=== PATIENT | female | born 2000 | race Caucasian/White ===

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

== ENCOUNTER → 2019-12-08 | Outpatient (CLI) | payer OTHER ==
[~2019-12-08] MED LIST changes: +IBUP-1114 PO; +MAPA500T2 PO
[2019-12-08 12:54] LABS: APPEARANCE, URINE HAZY (CLEAR); BACTERIA, URINE AUTO 2+ (NEGATIVE); BILIRUBIN, URINE AUTO NEGATIVE (NEGATIVE); BLOOD, URINE BLOOD NEGATIVE (NEGATIVE); COLOR, URINE YELLOW (YELLOW); GLUCOSE, URINE (UA) AUTO NEGATIVE (NEGATIVE); KETONE, URINE AUTO NEGATIVE (NEGATIVE); LEUKOCYTE ESTERASE, URINE AUTO 3+ (NEGATIVE); NITRITE, URINE AUTO NEGATIVE (NEGATIVE); PROTEIN, URINE AUTO NEGATIVE (NEGATIVE); RBC, URINE AUTO 1 /HPF (0-3); SPECIFIC GRAVITY URINE AUTO 1.003 (1.002-1.035); SQUAMOUS EPITHELIAL CELL UR AU 11 /HPF (0-6); UROBILINOGEN, URINE AUTO 0.2 mg/dL (0.0-2.0); WBC, URINE AUTO 5 /HPF (0-3)
[2019-12-08 13:10] LABS: BASO % 0.2 % (0.0-1.0); EOS # 0.1 10^3/uL (0.0-0.5); EOS % 0.6 % (0.0-3.0); HEMATOCRIT 39.1 % (36.0-47.0); LYMPH # 1.2 10^3/uL (1.5-5.0); LYMPH % 13.7 % (24.0-44.0); MEAN CORPUSCULAR HEMOGLOBIN 29.6 pg (27.0-33.0); MEAN CORPUSCULAR HGB CONC 33.2 g/dl (32.0-36.5); MEAN CORPUSCULAR VOLUME 89.1 fl (80.0-96.0); MONO # 0.3 10^3/uL (0.0-0.8); MONO % 2.8 % (0.0-5.0); NEUTROPHILS # 7.5 10^3/uL (1.5-8.5); NEUTROPHILS % 82.3 % (36.0-66.0); PLATELET COUNT, AUTOMATED 314 10^3/uL (150-450); RED BLOOD COUNT 4.39 10^6/uL (4.00-5.40); WHITE BLOOD COUNT 9.1 10^3/uL (4.0-10.0)
[2019-12-08 14:18] LABS: HIV 1&2 SCREEN CENTAUR NEGATIVE (NEGATIVE)
== END ==
LOC: M LAB 12:03
PROVIDERS: ATTEND Advanced Practice Midwife
DX: Z34.81 Encounter for supervision of other normal pregnancy, first trimester (principal); Z3A.00 Weeks of gestation of pregnancy not specified

== ENCOUNTER → 2019-12-11 | Outpatient (CLI) | payer OTHER ==
--- NOTE | 2019-12-12 08:06 | REP ---
INDICATION: PREG, DATING. Supervision of . COMPARISON: None. TECHNIQUE: Transabdominal obstetric sonography: FINDINGS: Scanning through the gravid uterus demonstrates a viable single intrauterine gestation in breech lie. motion is observed and heart rate is recorded at 150 beats per minute. A left lateral placenta is seen, grade 0, without evidence of placenta previa. Amniotic fluid is subjectively normal. Closed cervical length is measured at 4.2 cm transabdominally. No extrauterine abnormality is observed. No abnormality is observed. nose and lips and facial profile less than optimally seen due to position. Right ventricular cardiac outflow tract view is also less than optimally seen. The following additional anatomic structures are identified felt to be unremarkable: cranium, intracranial anatomy, four-chamber heart with left ventricular outflow tract view, diaphragm, left-sided stomach, abdominal wall cord insertion, right and left kidney, urinary bladder, spine, upper and lower extremities. Biometry chart: BPD 4.8 cm 20 weeks 4 days Head circumference 17.1 cm 19 weeks 5 days Abdominal circumference 14.9 cm 20 weeks 1 day Femur length 3.0 cm 19 weeks 2 days Humeral length 2.8 cm 18 weeks 6 days HC/AC ratio normal 1.15 Cephalic index normal 0.80 Estimated weight 312 grams, 0 lb 11 oz IMPRESSION: Viable single intrauterine gestation at 19 weeks 5 days by today's composite sonographic criteria. FRAN by today's sonography May 01, 2020. No complication identified. anatomic survey less than complete regarding visualization of face and profile and right ventricular cardiac outflow tract view. <Electronically signed by Missael Blount > 12/12/19 0831
== END ==
LOC: M RAD 13:53
PROVIDERS: ATTEND Advanced Practice Midwife
DX: Z36.87 Encounter for antenatal screening for uncertain dates (principal); O09.292 Supervision of pregnancy with other poor reproductive or obstetric history, second trimester; Z3A.19 19 weeks gestation of pregnancy

== ENCOUNTER → 2020-01-09 | Outpatient (CLI) | payer OTHER ==
--- NOTE | 2020-01-09 16:42 | REP ---
INDICATION: F/U ANATOMY - NOSE,LIPS,PROFILE,RVOT COMPARISON: 12/11/2019 TECHNIQUE: Transabdominal obstetrical ultrasound with color Doppler evaluation. FINDINGS: Examination demonstrates a single live intrauterine in breech presentation. motion is identified by technologist. Placenta is noted posterior fundal and grade 2 without evidence for placenta previa or abruption. Multiple venous lakes are suggested within the placenta. The cord appears to insert on the superior 3rd of the placenta. Amniotic fluid volume is normal. Cervix measures 3.3 cm in length and appears closed.. Gestational age by LMP 24 weeks 2 days with FRAN 04/28/2020. Gestational age by current measurements 22 weeks 5 days with FRAN 05/09/2020. FHR equals 160 beats per minute. Estimated weight 537 grams (less than 3rd percentile based on age by FRAN at 23 weeks 6 days; 49th percentile based on age by current measurements). Anatomical assessment demonstrates normal structures including choroid plexus, cavum, cerebellum/posterior fossa, facial features, right cardiac ventricular outflow tract, lungs, diaphragm, stomach, cord insertion/three-vessel cord, kidneys/bladder, spine, and extremities. IMPRESSION: 1. In conjunction with prior examination anatomical assessment is essentially normal. There is mild subjective prominence to the gallbladder of uncertain significance which may warrant follow-up. 2. Placenta demonstrates findings as described above including presumed venous lakes. 3. weight as described above may be below suspected normal range and may warrant follow-up. <Electronically signed by Jeanmarie Parks > 01/09/20 1721
== END ==
LOC: M WHC 11:00
PROVIDERS: ATTEND Advanced Practice Midwife
DX: O09.292 Supervision of pregnancy with other poor reproductive or obstetric history, second trimester (principal)

== ENCOUNTER → 2020-02-01 | Outpatient (CLI) | payer OTHER ==
--- NOTE | 2020-02-01 13:46 | REP ---
INDICATION: SUSPECTED POOR GROWTH,F/U GALLBLADDER AND GROWTH. COMPARISON: Comparison study January 09, 2020.. TECHNIQUE: Transabdominal obstetric sonography. FINDINGS: Scanning through the gravid uterus demonstrates a viable single intrauterine gestation in cephalic lie. motion is observed and heart rate is recorded at 134 beats per minute. A posterior fundal placenta is seen, grade 2, without evidence of placenta previa. Amniotic fluid is subjectively normal. Closed cervical length is measured at 3.2 cm transabdominally. No extrauterine abnormality is observed. Amniotic fluid is subjectively normal. A marginal placental cord insertion is seen. Four-chamber heart and left ventricular outflow tract views were visualized today and appear normal. There is mild renal pyelitis Marina desist, right greater than left. The AP dimension of the right renal pelvis is 5 mm. Consider urinary tract sonography. Biometry chart: BPD 6.7 cm, 26 weeks 6 days Head circumference 24.9 cm, 27 weeks 0 days Abdominal circumference 22.3 cm, 26 weeks 5 days Femur length 4.6 cm, 25 weeks 2 days Humeral length 4.0 cm, 24 weeks 3 days HC AC ratio normal 1.12 Cephalic index normal 0.74 Estimated weight 913 g, 2 lb 0 oz, 12th percentile for 27 weeks 1 day SD ratio in the umbilical cord artery by Doppler normal 2.36 IMPRESSION: Viable single intrauterine gestation at 26 weeks 0 days by today's composite sonographic criteria. FRAN by today's sonography May 09, 2020. No complication identified. Expected gestational age estimate based on prior sonography is 27 weeks 4 days. FRAN by prior sonography April 28, 2020. Estimated weight in the 12th percentile for 27 weeks 1 day. Mild renal pyelectasis. <Electronically signed by Missael Blount > 02/01/20 [id number]
== END ==
LOC: M WHC 10:37
PROVIDERS: ATTEND Advanced Practice Midwife
DX: O36.5920 Maternal care for other known or suspected poor fetal growth, second trimester, not applicable or unspecified (principal); Z3A.26 26 weeks gestation of pregnancy

== ENCOUNTER → 2020-02-19 | Outpatient (REF) | payer OTHER ==
[2020-02-19 10:19] LABS: HEMATOCRIT 36.4 % (36.0-47.0); HEMOGLOBIN 11.9 g/dl (12.0-15.5); MEAN CORPUSCULAR HEMOGLOBIN 28.6 pg (27.0-33.0); MEAN CORPUSCULAR HGB CONC 32.7 g/dl (32.0-36.5); MEAN CORPUSCULAR VOLUME 87.5 fl (80.0-96.0); PLATELET COUNT, AUTOMATED 283 10^3/uL (150-450); RED BLOOD COUNT 4.16 10^6/uL (4.00-5.40); WHITE BLOOD COUNT 15.4 10^3/uL (4.0-10.0)
== END ==
LOC: M PLALAB 08:02
PROVIDERS: ATTEND Advanced Practice Midwife
DX: O36.5920 Maternal care for other known or suspected poor fetal growth, second trimester, not applicable or unspecified (principal); Z3A.29 29 weeks gestation of pregnancy

== ENCOUNTER → 2020-03-01 | Outpatient (CLI) | payer OTHER | LOC: M PLALAB 08:53 | PROVIDERS: ATTEND Advanced Practice Midwife | DX: O36.5920 Maternal care for other known or suspected poor fetal growth, second trimester, not applicable or unspecified (principal); Z3A.00 Weeks of gestation of pregnancy not specified | CPT/HCPCS: 36415; 86850; 86900; 86901; J2790 ==

== ENCOUNTER → 2020-03-07 | Outpatient (CLI) | payer OTHER ==
--- NOTE | 2020-03-08 08:37 | REP ---
INDICATION: POOR REPRODUCTIVE,OBSTETRIC HX,GROWTH,SHADY COMPARISON: 02/01/2020 TECHNIQUE: Transabdominal obstetrical ultrasound with color Doppler evaluation. FINDINGS: Examination demonstrates a single live intrauterine in cephalic presentation. motion is identified by technologist. Placenta is noted posterior and grade 2 without evidence for placenta previa or abruption. Amniotic fluid volume is normal. Cervix measures 3.7 cm in length and appears closed.. Gestational age by LMP 32 weeks 4 days with FRAN 04/28/2020. Gestational age by current measurements 30 weeks 4 days with FRAN 05/12/2020. FHR equals 135 beats per minute. BPD: 7.8 cm 31 weeks 2 days HC: 28.9 cm 31 weeks 6 days AC: 26.6 cm 30 weeks 5 days FL: 5.8 cm 30 weeks 3 days HL: 4.9 cm 28 weeks 4 days HC/AC: 1.09 Estimated weight 1631 grams (less than 3rdpercentile). IMPRESSION: Single live advanced gestation in cephalic presentation. Estimated weight suggests IUGR <Electronically signed by Jeanmarie Parks > 03/08/20 0870
== END ==
LOC: M WHC 11:02
PROVIDERS: ATTEND Advanced Practice Midwife
DX: O09.293 Supervision of pregnancy with other poor reproductive or obstetric history, third trimester (principal); Z3A.30 30 weeks gestation of pregnancy

== ENCOUNTER → 2020-03-15 | Outpatient (CLI) | payer OTHER ==
--- NOTE | 2020-03-15 18:49 | REP ---
INDICATION: IUGR,BPP W/CORD DOPPLERS COMPARISON: 03/07/2020 TECHNIQUE: Transabdominal obstetrical ultrasound with color Doppler evaluation. FINDINGS: Examination demonstrates a single live intrauterine in cephalic presentation. motion is identified by technologist. Placenta is noted posterior and grade 3 without evidence for placenta previa or abruption. Amniotic fluid volume is normal. Cervix measures 3.1 cm in length and appears closed.. Gestational age by LMP 33 weeks 5 days with FRAN 04/28/2020. Gestational age by 1st ultrasound 33 weeks 5 days with FRAN 04/28/2020. FHR equals 149 beats per minute. SHADY: 15.6 cm Biophysical profile score: 8/8 Umbilical artery 1 SD ratio: 1.98 (1.77-3.74) Umbilical artery 2 SD ratio: 2.14 IMPRESSION: Single live advanced gestation in cephalic presentation. Amniotic fluid index and biophysical profile score are normal. <Electronically signed by Jeanmarie Parks > 03/15/20 1354
== END ==
LOC: M WHC 13:56
PROVIDERS: ATTEND Advanced Practice Midwife
DX: O36.5930 Maternal care for other known or suspected poor fetal growth, third trimester, not applicable or unspecified (principal); Z3A.33 33 weeks gestation of pregnancy

== ENCOUNTER → 2020-03-18 | Outpatient (CLI) | payer OTHER ==
--- NOTE | 2020-03-19 08:42 | REP ---
INDICATION: BPP/CORD DOPPLERS COMPARISON: 03/15/2020 TECHNIQUE: Transabdominal obstetrical ultrasound with color Doppler evaluation. FINDINGS: Examination demonstrates a single live intrauterine in cephalic presentation. motion is identified by technologist. Placenta is noted posterior and grade 3 without evidence for placenta previa or abruption. Amniotic fluid volume is normal. Cervix measures 3.2 cm in length and appears closed.. Gestational age by LMP 33 weeks 5 days with FRAN 05/01/2020. Gestational age by 1st ultrasound 34 weeks 1 day with FRAN 04/28/2020. FHR equals 156 beats per minute. SHADY: 17.3 cm Biophysical profile score: 8/8 Umbilical artery 1 SD ratio: 2.00 (1.75-3.71) Umbilical artery 2 SD ratio: 2.50 IMPRESSION: Single live advanced gestation in cephalic presentation. Amniotic fluid volume and biophysical profile score normal. <Electronically signed by Jeanmarie Parks > 03/19/20 0848
== END ==
LOC: M WHC 09:58
PROVIDERS: ATTEND Advanced Practice Midwife
DX: O36.5930 Maternal care for other known or suspected poor fetal growth, third trimester, not applicable or unspecified (principal); Z3A.00 Weeks of gestation of pregnancy not specified

== ENCOUNTER → 2020-03-20 | Outpatient (REF) | payer OTHER | LOC: M PLALAB 13:59 | PROVIDERS: ATTEND Obstetrics & Gynecology | DX: Z3A.34 34 weeks gestation of pregnancy (principal) ==

== ENCOUNTER → 2020-03-22 | Outpatient (CLI) | payer OTHER ==
--- NOTE | 2020-03-23 04:09 | REP ---
INDICATION: IUGR,BPP W/CORD DOPPLER,GROWTH COMPARISON: 03/18/2020 TECHNIQUE: Transabdominal obstetrical ultrasound with color Doppler evaluation. FINDINGS: Examination demonstrates a single live intrauterine in cephalic presentation. motion is identified by technologist. Placenta is noted posterior and grade 3 without evidence for placenta previa or abruption. Amniotic fluid volume is normal. Cervix measures 3.4 cm in length and appears closed.. Gestational age by LMP 34 weeks 5 days with FRAN 04/28/2020. Gestational age by current measurements 31 weeks 5 days with FRAN 05/19/2020. FHR equals 136 beats per minute. SHADY: 15.9 cm. Biophysical profile score: 8/8. Umbilical artery 1 SD ratio: 2.60 (1.72-3.65) Umbilical artery 2 SD ratio: 2.01. Estimated weight 1879 grams (less than 3rdpercentile). IMPRESSION: 1. Single live intrauterine demonstrating less than expected interval growth based on age by LMP and 1st ultrasound. 2. Amniotic fluid index and biophysical profile score are normal. <Electronically signed by Jeanmarie Parks > 03/23/20 [id number]
== END ==
LOC: M WHC 11:09
PROVIDERS: ATTEND Advanced Practice Midwife
DX: O36.5930 Maternal care for other known or suspected poor fetal growth, third trimester, not applicable or unspecified (principal); Z3A.31 31 weeks gestation of pregnancy

== ENCOUNTER → 2020-03-22 | Outpatient (REF) | payer OTHER | LOC: M SFHCWAGY 16:43 | PROVIDERS: ATTEND Obstetrics & Gynecology | DX: Z3A.34 34 weeks gestation of pregnancy (principal) ==

== ENCOUNTER → 2020-03-26 | Outpatient (CLI) | payer OTHER ==
--- NOTE | 2020-03-26 10:43 | REP ---
INDICATION: BPP/CORD DOPPLERS COMPARISON: 03/22/2020 TECHNIQUE: Transabdominal obstetrical ultrasound with color Doppler evaluation. FINDINGS: Examination demonstrates a single live intrauterine in cephalic presentation. motion is identified by technologist. Placenta is noted posterior and grade 3 without evidence for placenta previa or abruption. Amniotic fluid volume is normal. Cervix measures 3.3 cm in length and appears closed.. Gestational age by LMP 34 weeks 6 days with FRAN 05/01/2020. Gestational age by 1st ultrasound 35 weeks 2 days with FRAN 04/28/2020. FHR equals 150 beats per minute. SHADY: 11.0 cm Biophysical profile score: 8/8 Umbilical artery 1 SD ratio: 2.18 (1.69-3.60) Umbilical artery 2 SD ratio: 2.37 (1.69-3.60) IMPRESSION: Single live intrauterine in cephalic presentation. Amniotic fluid index and biophysical profile score are normal. Cord Doppler is normal. <Electronically signed by Jeanmarie Parks > 03/26/20 [id number]
== END ==
LOC: M WHC 08:10
PROVIDERS: ATTEND Advanced Practice Midwife
DX: O36.5930 Maternal care for other known or suspected poor fetal growth, third trimester, not applicable or unspecified (principal); Z3A.35 35 weeks gestation of pregnancy

== ENCOUNTER → 2020-03-29 | Outpatient (CLI) | payer OTHER ==
--- NOTE | 2020-03-29 15:15 | REP ---
INDICATION: BPP/CORD DOPPLERS. COMPARISON: 03/26/2020. TECHNIQUE: Real-time sonographic evaluation of gravid uterus performed. FINDINGS: There is single living intrauterine gestation. The estimated gestational age is reportedly 35 weeks 5 days, EDC 04/28/2020. position is cephalic. Placenta is posterior and grade 3 with no previa or abruption. heart rate 153 beats per minute. Amniotic fluid within normal limits, SHADY 17.7 within normal range 7.8-24.9. Biophysical profile score 8/8. SD ratio umbilical artery 1.95 to 2.58, normal range 1.67-3.57. Cervix is closed and measures 3.1 cm in length. IMPRESSION: Biophysical profile score 8/8. <Electronically signed by Ricardo Prater > 03/29/20 0503
== END ==
LOC: M WHC 13:26
PROVIDERS: ATTEND Advanced Practice Midwife
DX: O36.5930 Maternal care for other known or suspected poor fetal growth, third trimester, not applicable or unspecified (principal); Z3A.35 35 weeks gestation of pregnancy

== ENCOUNTER → 2020-04-01 | Outpatient (CLI) | payer OTHER ==
--- NOTE | 2020-04-01 12:01 | REP ---
INDICATION: IUGR,BPP W/CORD DOPPLERS. COMPARISON: Comparison study March 29, 2020.. TECHNIQUE: Transabdominal obstetric sonography. Limited scanning. FINDINGS: Scanning demonstrates a single living intrauterine gestation in a cephalic lie. heart rate is recorded at 165 beats per minute. The placenta is posterior grade 3 without evidence of previa. There is marginal insertion of the umbilical cord on the placenta. Three-vessel cord is seen. Amniotic fluid is subjectively normal. SHADY is normal 16.2 cm. Biophysical profile score is 8 out of a possible 8. SD ratio in the umbilical cord artery by Doppler is normal at 1.57. IMPRESSION: Viable single intrauterine gestation at 36 weeks 1 day by previous sonography FRAN by prior sonography April 29, 2019. Normal biophysical profile and umbilical cord Doppler. <Electronically signed by Missael Blount > 04/01/20 [id number]
== END ==
LOC: M WHC 10:27
PROVIDERS: ATTEND Advanced Practice Midwife
DX: O36.5930 Maternal care for other known or suspected poor fetal growth, third trimester, not applicable or unspecified (principal); Z3A.36 36 weeks gestation of pregnancy

== ENCOUNTER → 2020-04-05 | Outpatient (CLI) | payer OTHER ==
--- NOTE | 2020-04-05 18:33 | REP ---
INDICATION: BPP/CORD DOPPLERS/GROWTH/SHADY. COMPARISON: 04/01/2020. FINDINGS: Scanning demonstrates a viable single intrauterine gestation in a cephalic lie. motion is observed and heart rate is recorded at 139 beats per minute. A posterior grade 3 placenta seen without evidence of previa. SHADY 16.4 with normal range 7.6-24.3. The three-vessel cord present with marginal insertion. The cervix obscured by shadowing from the skull. Biometry chart: BPD 8.5 cm; 34 weeks 1 days Head circumference 31.9 cm; 35 weeks 6 days Abdominal circumference 30.3 cm; 34 weeks 2 days Femur length 6.2 cm; 32 weeks 0 days Humeral length 5.1 cm; 29 weeks 6 days HC/AC ratio normal 1.03 Cephalic index normal 0.73 Estimated weight 2273 grams, 5 pounds 0 ounces, < 3 percentile for 36 weeks 2 days. IMPRESSION: Viable single intrauterine gestation at 33 weeks 2 days by today's composite sonographic criteria. Expected gestational age estimate based on prior sonography is 36 weeks is 5 days. FRAN by prior sonography 04/28/2020. Study again shows IUGR. <Electronically signed by Hansel Mann > 04/05/20 [id number]
== END ==
LOC: M WHC 10:30
PROVIDERS: ATTEND Advanced Practice Midwife
DX: Z36.9 Encounter for antenatal screening, unspecified (principal); Z3A.33 33 weeks gestation of pregnancy

== ENCOUNTER → 2020-04-08 | Outpatient (CLI) | payer OTHER ==
--- NOTE | 2020-04-08 16:31 | REP ---
INDICATION: IUGR,BPP W/CORD DOPPLERS. COMPARISON: 04/05/2020. TECHNIQUE: Real-time sonographic evaluation of the gravid uterus performed. FINDINGS: Estimated gestational age 36 weeks 5 days, EDC 05/01/2020. Presentation: Cephalic Placenta posterior, grade 3, without evidence of placenta previa. Umbilical cord inserts at the margin of the placenta. heart rate is recorded at 134 beats per minute. Amniotic fluid is subjectively normal. SHADY 19.8, normal range 7.6-24.5. Biophysical profile score 8/8. SD ratio umbilical artery 1.89-2.78, normal range 1.6-3.45. Closed cervical length is measured at 3.2 cm. IMPRESSION: Viable single intrauterine gestation as above. <Electronically signed by Ricardo Prater > 04/08/20 [id number]
== END ==
LOC: M WHC 10:59
PROVIDERS: ATTEND Advanced Practice Midwife
DX: O36.5930 Maternal care for other known or suspected poor fetal growth, third trimester, not applicable or unspecified (principal); Z3A.36 36 weeks gestation of pregnancy

== ENCOUNTER → 2020-04-12 | Outpatient (CLI) | payer OTHER ==
[~2020-04-12] MED LIST changes: +FLAG500T PO
--- NOTE | 2020-04-12 14:23 | REP ---
INDICATION: IUGR,BPP W/CORD DOPPLERS. COMPARISON: 04/08/2020 TECHNIQUE: Real-time sonographic evaluation of the gravid uterus performed. FINDINGS: Estimated gestational age is37 weeks 2 days, EDC 05/01/2020. Presentation: Cephalic Placenta posterior, grade 3, without evidence of placenta previa. The umbilical cord inserts onto the margin of the placenta. heart rate is recorded at 147 beats per minute. Amniotic fluid is subjectively normal. SHADY 20.6, normal range 7.4-24.3 Biophysical profile score 8/8. SD ratio umbilical artery 1.97-2.40, normal range 1.58-3.41. RI 0.49-0.58, normal range 0.43-0.70. Closed cervical length is measured at 3.6 cm. IMPRESSION: Viable single intrauterine gestation as above. <Electronically signed by Ricardo Prater > 04/12/20 [id number]
== END ==
LOC: M WHC 10:57
PROVIDERS: ATTEND Advanced Practice Midwife
DX: O36.5930 Maternal care for other known or suspected poor fetal growth, third trimester, not applicable or unspecified (principal); Z3A.37 37 weeks gestation of pregnancy

== ENCOUNTER → 2020-04-15 | Outpatient (CLI) | payer OTHER ==
--- NOTE | 2020-04-15 12:50 | REP ---
INDICATION: BPP, CORD DOPPLER COMPARISON: 04/12/2020 TECHNIQUE: Transabdominal obstetrical ultrasound with color Doppler evaluation. FINDINGS: Examination demonstrates a single live intrauterine in cephalic presentation. motion is identified by technologist. Placenta is noted posterior and grade 3 without evidence for placenta previa or abruption. There is evidence for marginal cord insertion to the placenta. Amniotic fluid volume is normal. FHR equals 169 beats per minute. Biophysical profile score: 8/8 SHADY: 18.6 cm (7.4-24.0) Umbilical artery 1 SD ratio: 1.92 (1.56-3.38) Umbilical artery 2 SD ratio: 1.76 (1.56-3.38) IMPRESSION: No gross abnormalities identified. <Electronically signed by Jeanmarie Parks > 04/15/20 [id number]
== END ==
LOC: M WHC 11:02
PROVIDERS: ATTEND Advanced Practice Midwife
DX: O36.5930 Maternal care for other known or suspected poor fetal growth, third trimester, not applicable or unspecified (principal); Z3A.00 Weeks of gestation of pregnancy not specified

== ENCOUNTER 2020-04-17 09:12 | Inpatient (IN) | payer OTHER ==
[2020-04-17] VITALS (35 sets, daily range): BP systolic 96–160; BP diastolic 54–89
[~2020-04-17] VITALS: Ht 165.1 cm; Wt 78.8 kg
[~2020-04-17 09:12] MED LIST changes: -FLAG500T PO
[2020-04-17] MEDS ORDERED: LACTATED RINGER'S 1000 ML IV STA (09:19)
[2020-04-17 10:15] LABS: HEMATOCRIT 36.5 % (36.0-47.0); HEMOGLOBIN 11.9 g/dl (12.0-15.5); MEAN CORPUSCULAR HEMOGLOBIN 27.4 pg (27.0-33.0); MEAN CORPUSCULAR HGB CONC 32.6 g/dl (32.0-36.5); MEAN CORPUSCULAR VOLUME 84.1 fl (80.0-96.0); PLATELET COUNT, AUTOMATED 288 10^3/uL (150-450); RED BLOOD COUNT 4.34 10^6/uL (4.00-5.40); WHITE BLOOD COUNT 11.3 10^3/uL (4.0-10.0)
[2020-04-17] MEDS ORDERED: OXYTOCIN DRIP 30 UNITS in IV 1 EA IV SCH (11:00)
--- NOTE | 2020-04-17 11:00 | HPEPDOC ---
Obstetrical History & Physical General Date of Admission Apr 17, 2020 at 09:12 Primary Care Physician: AMANDA BROWN CNM History of Present Illness Shellie is a 19-year-old female who is a at 38 weeks gestation with an FRAN of 05/01/20 based off of a 2nd trimester ultrasound. She initiated care in her second trimester ultrasound at 15 weeks gestation. Her has been complicated by severe IUGR, PPROM at 22 weeks gestation, a history of GHTN, anxiety/depression: not taking any medication. She has had twice weekly BPPs, weekly NSTs and growth ultrasounds every 2 weeks. She presents to L&D for an induction of labor related to severe IUGR. Plan of care was collaborated with Dr. Tiwari prior to scheduling induction and reviewed again today with Dr. Dueñas. Chief Complaint: Other (Induction of labor for IUGR) Information Provided By: Patient Age: 19 : 5 Term: 1 Pre-term: 1 Abortions: 2 Livin Care Care: Good Care Dating Final EDC: May 01, 2020 Final EDC by: 2nd trimester (US) EGA at Admission: 38 Antepartum Course Diagnos(e)s severe IUGR, marginal cord insertion Height (inches): 65 Admission Weight (lbs.): 180 Past Medical History Past Obstetrical History #1: Past Obstetrical History: Primgravida Date of Delivery: Dec 07, 2016 Gestation: 22.3 Type of Delivery: Spontaneous Vaginal Del. Complications: Yes (PPROM at 21 weeks; retained placenta) Past Obstetrical History #2: Past Obstetrical History: Multigravida Date of Delivery: Nov 19, 2017 Gestation: 38.6 Type of Delivery: Spontaneous Vaginal Del. 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 Taking extra folic acid. Surgical History: Tonsilectomy, Other (repair of tethered spine) Family History Significant Family History: Diabetes, Hypertension Social History Marital Status: Single (Aidan) Family situation: Spouse/partner home Psychosocial History: Anxiety, Depression * Smoker: non-smoker Alcohol: Denies Drugs: denies Abuse Violence Screening Have you been hit/kicked/slapp: No Have you been sexually assault: No Allergies Coded Allergies: No Known Drug Allergies (Verified Allergy, Unknown, 04/17/20) Medications Scheduled Pnv No.95/Ferrous Fum/Folic AC ( Formula Tablet) 1 Tab Tab, 1 TAB PO DAILY Scheduled PRN Acetaminophen (Mapap) 500 Mg Tab, 650 MG PO Q4HP PRN for PAIN Physical Examination Physical Examination GENERAL: Alert and oriented times three. BREAST: . ABDOMEN: Gravid and non-tender to touch. FETUS: Is vertex (VTX) by sterile vaginal examination (SVE), fetus is vertex (VTX) by Flynn. LUNGS: Clear to auscultation (CTA). EXTREMITIES: No edema. No clonus. Deep tendon reflexes (DTRs) + 2. Laboratory Data 24H LABS Laboratory Tests 2 04/17/20 09:26: Serology Scanned Report Hepatitis B Testing 04/17/20 09:57: Nucleated Red Blood Cells % (auto) 0.0 CBC/BMP Laboratory Tests 04/17/20 09:57 Urine Culture: No Growth Pertinent Laboratoy Data Blood Type: O- RBC Antibody Screen: Negative HIV: Negative Hepatitis B: Negative Hepatitis C: Negative Rapid Plasma Reagin: Nonreactive Rubella: Immune Chlamydia/Gonorrhea: Negative Group B Streptococcus: Negative Glucose Tolerance Test: 110 Anatomy Ultrasound Ultrasound Date: Apr 05, 2020 Normal Anatomy: Yes Placenta Previa: No Estimated Weight (grams): 2273 Vaginal Examination Effacement: other (75%) Station: -3 Cervical Consistency: Soft Cervical Position: Posterior Presentation: Cephalic presentation Position: Vertex (occiput) Assessment Heart Rate (FHR): 130 Variability: Moderate Accelerations: Positive Decelerations: None Tocometer Contractions: Yes Frequency: irregular Multi-drug resistant Organism: No history of MDRO Assessment/Plan Assessment IUP at 38 weeks gestation severe IUGR GBS negative Category I FHR tracing. Plan Admit to Labor and delivery. OOB ad daylin. Diet: clear liquid. Group B Streptococcus (GBS) negative. Labs and intravenous (IV) per unit protocol. Counseled on Pitocin for induction of labor. Anesthesia consult per patient's request. Lactated Ringers (LR): Bolus 800 mL prior to epidural, then at 125 mL/hr. Anticipate cervical change and . C-S as appropriate. AMANDA BROWN CNM Apr 17, 2020 11:00
[2020-04-17] MEDS: LR 1,000 ML IV SCH ×3 (11:07→22:11)
--- NOTE | 2020-04-17 22:02 | IPNPDOC ---
Obstetrical Progress Note Date of Service Apr 17, 2020 Objective Vital Signs Date Time Temp Pulse Resp B/P (MAP) Pulse Ox O2 Delivery O2 Flow Rate FiO2 04/17/20 18:54 98.1 68 16 132/82 (99) 04/17/20 16:22 98 Assessment Heart Rate (FHR): 140 Variability: Moderate Accelerations: Positive Decelerations: None Heart Rate Tracing: Category I Tocometer Contractions: Yes Frequency: regular Sterile Vaginal Examination Postion/Presentation: Cephalic presentation Assessment and Plan Status: Reassuring Group B Streptococcus: Negative Anticipate: Vaginal Delivery Additional Comments IV Pitocin at 14 mu/min. Vaginal exam very difficult and patient not tolerating it well. SVE feels unchanged. Reports it hurts and has ever hurt to have sex. This is new as vaginal exam in the past, patient has tolerated. Patient encouraged to get epidural so that we can do a good vaginal exam as this is her plan for pain management. Will start patient with diflucan and possibly Flagyl. AMANDA BROWN CNM Apr 17, 2020 22:02
[2020-04-17] MEDS ORDERED: FENTANYL 2MCG/ML ROPIVACAINE 0.2% IN 0.9% NACL 100ML IVBAG As Ordered ONE (22:06)
[2020-04-17] MEDS ORDERED: NALOXONE INJ 0.4MG/1ML VIAL (J2310 PER 1MG) IV PRN (23:14)
[2020-04-17] MEDS ORDERED: REFRIGERATOR IV KEYS XX PRN (23:14)
[2020-04-17] MEDS ORDERED: EPIDURAL COMMENT XX SCH (23:14)
[2020-04-17] MEDS ORDERED: LACTATED RINGER'S 1000 ML IV PRN (23:14)
[2020-04-17] MEDS ORDERED: FENTANYL/ROPIVACAINE/NACL BAG 100 ML EPIDURAL SCH (23:14)
[2020-04-17] MEDS ORDERED: ePHEDrine SULFATE 25 MG/5 ML(5MG/ML) SYRINGE IV PRN (23:14)
[2020-04-17] MEDS ORDERED: ONDANSETRON 4MG/2ML VIAL IV PRN (23:14)
[2020-04-17] MEDS ORDERED: diphenhydrAMINE 50MG/ML VIAL (J1200) IV PRN (23:14)
[2020-04-17] MEDS ORDERED: EPIDURAL/PCA KEYS XX PRN (23:14)
[2020-04-17] MEDS ORDERED: ONDANSETRON 4MG/2ML VIAL As Ordered ONE (23:45)
[2020-04-18] VITALS (30 sets, daily range): BP systolic 98–168; BP diastolic 50–103
--- NOTE | 2020-04-18 02:58 | IPNPDOC ---
Obstetrical Progress Note Date of Service Apr 18, 2020 Subjective Patient comfortable with her epidural. Objective Vital Signs Date Time Temp Pulse Resp B/P (MAP) Pulse Ox O2 Delivery O2 Flow Rate FiO2 04/17/20 23:49 50 18 119/58 (78) 04/17/20 23:33 98.0 04/17/20 16:22 98 Assessment Heart Rate (FHR): 120 Variability: Moderate Accelerations: None Decelerations: Variable, Prolonged Heart Rate Tracing: Category II Tocometer Contractions: Yes Frequency: regular Sterile Vaginal Examination Dilation: 6 cm Effacement (%): 80% Station: -2 Cervical Consistency: Soft Cervical Position: Anterior Postion/Presentation: Cephalic presentation Assessment and Plan Age: 19 Group B Streptococcus: Negative Anticipate: Vaginal Delivery Additional Comments AROM to a large amount of fluid. FHR 1-2 minutes after AROM was difficult to trace. SVE noted slight occult cord at 4 o'clock. Requested the nurses call Dr. Manning (in house OB for [place]) Dr. Dueñas (back-up attending) and anesthesia notified about potential cord prolapse for assistance. FSE placed for FHR. IV Pitocin turned off, Oxygen at 10 ml/hr with non rebreather attached to patient and IV fluid bolus started. Had patient push to see if the the head would move past the cord and it did. FHR started to increase and was noted to be a [address] Manning also checked after getting consent from the patient to make sure there was no cord that could be felt and he agreed. Will continue to monitor. Dr. Dueñas was never notified by staff, which was reported after fetus heart rate was more stable. AMANDA BROWN CNM Apr 18, 2020 02:58
--- NOTE | 2020-04-18 04:57 | IPNPDOC ---
Obstetrical Progress Note Date of Service Apr 18, 2020 Subjective Patient comfortable with her epidural. Objective Vital Signs Date Time Temp Pulse Resp B/P (MAP) Pulse Ox O2 Delivery O2 Flow Rate FiO2 04/18/20 03:04 55 18 112/60 (77) 04/18/20 01:59 98.1 04/17/20 16:22 98 Assessment Heart Rate (FHR): 120 Variability: Moderate Accelerations: Positive Decelerations: Variable Heart Rate Tracing: Category II Tocometer Contractions: Yes Frequency: regular Sterile Vaginal Examination Dilation: 7 cm (7-8 cm) Effacement (%): 80% Station: -2 Cervical Consistency: Soft Postion/Presentation: Cephalic presentation Assessment and Plan Anticipate: Vaginal Delivery Additional Comments FHR with Category I FHR tracing then with reposition there were a few variables noted making it a Category II tracing, which has now resolved and Category I. IV Pitocin was turned back on and is at 4 mu/min. AMANDA BROWN CNM Apr 18, 2020 04:57
[2020-04-18] MEDS ORDERED: TRANEXAMIC ACID 100 MG/ML 10ML VIAL As Ordered ONE (08:25)
[2020-04-18 08:45] LABS: CORD GAS ABE A -4.3; CORD GAS HCO3 A 24.8 MEQ/L; CORD GAS O2 SAT A 47.9 %; CORD GAS PCO2 A 61.4 mmHg; CORD GAS PH A 7.224 UNITS; CORD GAS PO2 A 37.3 mmHg; CORD GAS SBC A 19.7 MEQ/L; CORD GAS TCO2 A 26.7 MEQ/L
[2020-04-18 08:52] LABS: CORD GAS ABE V -6.6; CORD GAS HCO3 V 18.7 MEQ/L; CORD GAS O2 SAT V 78.6 %; CORD GAS PCO2 V 36.7 mmHg; CORD GAS PH V 7.325 UNITS; CORD GAS PO2 V 32.9 mmHg; CORD GAS SBC V 18.7 MEQ/L; CORD GAS TCO2 V 19.8 MEQ/L
[2020-04-18] MEDS ORDERED: ACETAMINOPHEN TAB 650MG DOSE (2X325MG) PO PRN (09:05)
[2020-04-18] MEDS ORDERED: TRANEXAMIC ACID INJection 1,000 MG in NS 100 ML IV ONE (09:05)
[2020-04-18] MEDS ORDERED: RHOGAM 300 MCG (1500 IU) INJ (J2790) IM SCH (09:05)
[2020-04-18] MEDS ORDERED: MEASLES,MUMPS,RUBELLA VACCINE INJ (MMR-II) (90707) SC SCH (09:05)
[2020-04-18] MEDS ORDERED: METHYLERGONOVINE MALEATE 0.2 MG TAB PO PRN (09:05)
[2020-04-18] MEDS ORDERED: ANUSOL HC CREAM 30GM TOP PRN (09:05)
[2020-04-18] MEDS ORDERED: IBUPROFEN 600MG TAB PO PRN (09:05)
[2020-04-18] MEDS ORDERED: DIBUCAINE 1% OINTMENT 30GM TOP PRN (09:05)
[2020-04-18] MEDS ORDERED: DOCUSATE SODIUM 100MG CAPSULE PO PRN (09:05)
[2020-04-18] MEDS ORDERED: OXYTOCIN DRIP 30 UNITS in IV 1 EA IV SCH (09:15)
[2020-04-18] MEDS ORDERED: FLAG500T PO (09:16)
--- NOTE | 2020-04-18 09:20 | DNPDOC ---
[facility] Delivery Note Delivery Note DATE OF DELIVERY: 04/18/20 at 0815 PREDELIVERY DIAGNOSIS: 38-1/7 weeks' gestation and induction. POST DELIVERY DIAGNOSIS: Delivered. PROCEDURE: Spontaneous vaginal delivery. FIBROUS PLASTERER: Amanda Stover CNM, JAVON ANESTHESIA: epidural. ESTIMATED BLOOD LOSS: 450 mL. FINDINGS: 5 pounds 7 ounces; 2470 grams; male , Score 9/9, nuchal cord times 1 tight, IUGR, multiple variable deceleration, prolonged decelerations, marginal cord insertions. DELIVERY SUMMARY: Patient is a 19-year-old female who is now a who presented for induction of labor for severe IUGR. She received IV Pitocin for induction of labor. She requested an epidural for pain management. She progressed to fully dilated at 0744 after pushing through a small amount of cervix. With contractions the baby was having variable decelerations that were at times deep and prolonged. Neonatology notified. She pushed to a living female in the OA position with restitution to LOT. A tight nuchal cord was noted and not able to be reduced. The anterior shoulder delivered with was and the corpus immediately followed. The baby was placed on the maternal abdomen active and crying. The placenta was clamped x2 after 1 minute and cut by the FOB. Cord gases were obtained and sent. The placenta delivered spontaneous and intact at 0827 after starting IV Pitocin bolus. Moderate amount of bleeding with some large clots noted and Tranexamic acid started via IV for potential hemorrhage. Uterine hemostasis achieved via fundal massage, IV Pitocin and TXA. The vagina, cervix, and placenta was inspected and found to be intact. Mom is going to attempt to breastfeed. They are planning on naming him Cristel. All counts of instruments and sponges were correct. Mom and baby are in stable condition. AMANDA STOVER CNM Apr 18, 2020 09:20
[2020-04-18] MEDS: IBUPROFEN 800 MG TAB PO PRN ×2 (09:37→17:20)
[2020-04-18] MEDS: metroNIDAZOLE (FLAGYL) 500MG TABLET PO SCH ×2 (09:37→20:42)
[2020-04-18] MEDS: FLUCONAZOLE 50MG TABLET PO SCH (09:37)
[2020-04-18] MEDS: PRENATAL VITAMINS CHEWABLE TABLET PO SCH (09:37)
[2020-04-18] MEDS: ACETAMINOPHEN 500 MG TAB PO PRN ×2 (13:27→19:50)
[2020-04-19] MEDS: IBUPROFEN 800 MG TAB PO PRN ×3 (04:06→20:27)
[2020-04-19 06:00] VITALS: BP 136/72
--- NOTE | 2020-04-19 06:48 | IPNPDOC ---
Progress Note Date of Service: Apr 19, 2020 Progress Note SUBJECT: Pt is a 19-year-old 2 now Para 2 status post uncomplicated spontaneous vaginal delivery PPD#1. No complaints VITAL SIGNS: Within normal limits, afebrile. Alert and oriented times three. Breath sounds clear to auscultation. Heart rate: Regular rate and rhythm, no murmurs, rubs or gallops. Abdomen: Fundus firm at U-2. Soft, NTTP. Minimal lochia. ASSESSMENT: 19 yo PPD#1 s/p PLAN: 1 Tylenol and Motrin for pain. 2 Encourage breast feeding and ambulation. 3 Routine PP visit in 6 weeks in clinic. 4. routine PP care VS, I&O, 24H, Fishbone Vital Signs/I&O Vital Signs Date Time Temp Pulse Resp B/P (MAP) Pulse Ox O2 Delivery O2 Flow Rate FiO2 04/19/20 06:00 97.7 65 18 136/72 (93) 04/18/20 10:59 Room Air 04/17/20 16:22 98 I&O- Last 24 Hours up to 6 AM 04/19/20 06:00 Intake Total 861 ml Output Total 1900 ml Balance -1039 ml Laboratory Data 24H LABS Laboratory Tests 2 04/18/20 08:25: Cord Arterial Blood pH 7.224, Cord Arterial Blood PCO2 61.4, Cord Arterial Blood PO2 37.3, Cord Arterial Blood HCO3 24.8, Cord Arterial Blood Total CO2 26.7, Cord Arterial Blood Base Excess -4.3, Cord Arterial Base Excess (Standard 19.7, Cord Arterial Bld Oxygen Saturation 47.9, Cord Venous Blood pH 7.325, Cord Venous Blood PCO2 36.7, Cord Venous Blood PO2 32.9, Cord Venous Blood HCO3 18.7, Cord Venous Blood Total CO2 19.8, Cord Venous Base Excess (Actual) -6.6, Cord Venous Base Excess (Standard) 18.7, Cord Venous Blood Oxygen Saturation 78.6 MAYELA SIGALA MD Apr 19, 2020 06:48
[2020-04-19] MEDS: metroNIDAZOLE (FLAGYL) 500MG TABLET PO SCH ×2 (08:05→20:27)
[2020-04-19] MEDS: FLUCONAZOLE 50MG TABLET PO SCH (08:06)
[2020-04-19] MEDS: PRENATAL VITAMINS CHEWABLE TABLET PO SCH (08:06)
[2020-04-19] MEDS: ACETAMINOPHEN 500 MG TAB PO PRN ×2 (08:07→14:36)
[2020-04-19 09:51] VITALS: BP 133/84
[2020-04-19 14:00] VITALS: BP 127/77
--- NOTE | 2020-04-19 14:09 | IPNPDOC ---
Text Note Date of Service The patient was seen on 04/19/20. NOTE Chlamydia resulted positive. Azithromycin 1gm ordered. Pt states she and partner were out of relationship for a while during Discussed treatment for both partners, abstain from IC for at least 2 weeks. Informed pt that peds needs to be aware of + status. Verbalized understanding. VS,Fishbone, I+O VS, Fishbone, I+O Vital Signs Date Time Temp Pulse Resp B/P (MAP) Pulse Ox O2 Delivery O2 Flow Rate FiO2 04/19/20 14:00 98.1 72 16 127/77 (94) 04/19/20 09:51 99 Room Air I&O- Last 24 Hours up to 6 AM 04/19/20 06:00 Intake Total 861 ml Output Total 1900 ml Balance -1039 ml Suzi Macedo CNM Apr 19, 2020 14:09
[2020-04-19] MEDS ORDERED: AZITHROMYCIN 250MG TABLET PO ONE (15:00)
[2020-04-19 17:59] VITALS: BP 121/56
[2020-04-19 22:00] VITALS: BP 131/61
[2020-04-20 01:59] VITALS: BP 140/65
[2020-04-20] MEDS: ACETAMINOPHEN 500 MG TAB PO PRN (02:21)
[2020-04-20 06:00] VITALS: BP 129/80
[2020-04-20] MEDS: IBUPROFEN 800 MG TAB PO PRN (06:33)
[2020-04-20] MEDS: metroNIDAZOLE (FLAGYL) 500MG TABLET PO SCH (08:19)
[2020-04-20] MEDS: FLUCONAZOLE 50MG TABLET PO SCH (08:19)
[2020-04-20] MEDS: PRENATAL VITAMINS CHEWABLE TABLET PO SCH (08:20)
== END 2020-04-20 08:30 | disposition home or self-care (01) | DRG 560 ==
LOC: M LDI 09:12 → M OBS 04-18 10:38
PROVIDERS: ADMIT Advanced Practice Midwife; ATTEND Advanced Practice Midwife
PROC: 3E033VJ Introduction of Other Hormone into Peripheral Vein, Percutaneous Approach (ICD-10-PCS; 2020-04-17)
PROC: 10E0XZZ Delivery of Products of Conception, External Approach (ICD-10-PCS; principal; 2020-04-18)
PROC: 10907ZC Drainage of Amniotic Fluid, Therapeutic from Products of Conception, Via Natural or Artificial Opening (ICD-10-PCS; 2020-04-18)
DX: O36.5930 Maternal care for other known or suspected poor fetal growth, third trimester, not applicable or unspecified (principal); O76 Abnormality in fetal heart rate and rhythm complicating labor and delivery; Z3A.38 38 weeks gestation of pregnancy; Z37.0 Single live birth; O69.1XX0 Labor and delivery complicated by cord around neck, with compression, not applicable or unspecified

== ENCOUNTER → 2020-10-10 | Outpatient (REF) | payer OTHER ==
[~2020-10-10] MED LIST changes: +FLAG500T PO
[2020-10-10 23:05] LABS: GC DNA AMPLIFICATION NEGATIVE (NEGATIVE)
== END ==
LOC: M SFHCWAGY 18:01
PROVIDERS: ATTEND Advanced Practice Midwife
DX: Z11.3 Encounter for screening for infections with a predominantly sexual mode of transmission (principal)

== ENCOUNTER → 2024-11-27 | Outpatient (REF) | payer MEDICAID, OTHER ==
[2024-11-27 17:35] LABS: AMORPHOUS SEDIMENT LARGE (NEGATIVE); APPEARANCE, URINE TURBID (CLEAR); BACTERIA, URINE AUTO NEGATIVE (NEGATIVE); BILIRUBIN, URINE AUTO NEGATIVE (NEGATIVE); BLOOD, URINE BLOOD NEGATIVE (NEGATIVE); GLUCOSE, URINE (UA) AUTO NEGATIVE (NEGATIVE); KETONE, URINE AUTO NEGATIVE (NEGATIVE); LEUKOCYTE ESTERASE, URINE AUTO NEGATIVE (NEGATIVE); MUCUS, URINE MODERATE (NEGATIVE); NITRITE, URINE AUTO NEGATIVE (NEGATIVE); PROTEIN, URINE AUTO 1+ mg/dL (NEGATIVE); RBC, URINE AUTO 0 /HPF (0-3); SPECIFIC GRAVITY URINE AUTO 1.027 (1.002-1.035); SQUAMOUS EPITHELIAL CELL UR AU 0 /HPF (0-6); UROBILINOGEN, URINE AUTO 2.0 mg/dL (0.0-2.0); WBC, URINE AUTO 0 /HPF (0-3)
[2024-11-27 18:26] LABS: BASO # 0.1 10^3/uL (0.0-0.2); BASO % 0.9 % (0.0-1.0); EOS # 0.2 10^3/uL (0.0-0.5); EOS % 2.7 % (0.0-3.0); LYMPH # 2.0 10^3/uL (1.5-5.0); LYMPH % 28.6 % (24.0-44.0); MONO # 0.3 10^3/uL (0.0-0.8); MONO % 4.7 % (2.0-8.0); NEUTROPHILS # 4.4 10^3/uL (1.5-8.5); NEUTROPHILS % 62.8 % (36.0-66.0); PLATELET COUNT, AUTOMATED 394 10^3/uL (150-450)
[2024-11-27 18:31] LABS: IRON (FE) 102 UG/DL (50-170)
[2024-11-27 18:32] LABS: PERCENT SATURATION 28.7 % (13.2-45.0)
[2024-11-27 18:33] LABS: ALT/SGPT < 9 U/L (7.0-40); AST/SGOT 11 U/L (<34); CALCIUM LEVEL 9.6 MG/DL (8.5-10.1); CARBON DIOXIDE LEVEL 25 MMOL/L (20-31); CHLORIDE LEVEL 107 MMOL/L (98-107); CHOLESTEROL LEVEL 205 MG/DL (<200); CHOLESTEROL RISK RATIO 4.32 (<5); CREATININE FOR GFR 0.82 MG/DL (0.55-1.30); GLOMERULAR FILTRATION RATE > 90.0 (>60); LDL CHOLESTEROL 140.0 MG/DL (<100); NON-HDL-C 157.6 MG/DL; POTASSIUM SERUM 4.5 MMOL/L (3.5-5.1); SODIUM LEVEL 142 MMOL/L (136-145); TRIGLYCERIDES LEVEL 88 MG/DL (<150)
== END ==
LOC: M SFHCLERA 11:01
PROVIDERS: ATTEND Internal Medicine
DX: I10 Essential (primary) hypertension (principal); G25.81 Restless legs syndrome